=== PATIENT | male | born 1965 | race Two or more races ===

== ENCOUNTER 2020-08-02 09:29 | Inpatient (IN) | payer MEDICAID, OTHER ==
[~2020-08-02] VITALS: Ht 152.4 cm; Wt 64.4 kg
[2020-08-02 10:12] LABS: Basophils # (auto) 0 10 ^3/uL (0-0.2); Basophils % (auto) 0.2 % (0.0-2.0); Eosinophils # (auto) 0.1 10 ^3/uL (0-0.8); Eosinophils % (auto) 0.4 % (0.0-7.0); Hematocrit 45.5 % (41.0-53.0); Hemoglobin 15.7 g/dL (13.5-17.5); Lymphocytes # (auto) 0.9 10 ^3/uL (0.4-5.4); Lymphocytes % (auto) 5.8 % (10.0-50.0); Mean Corpuscular Hemoglobin 29.3 pg (28.0-32.0); Mean Corpuscular Hgb Conc. 34.6 g/dL (32.0-36.0); Mean Corpuscular Volume 84.6 fL (80.0-100.0); Monocytes # (auto) 0.7 10 ^3/uL (0-1.3); Monocytes % (auto) 4.6 % (0.0-12.0); Neutrophils # (auto) 14.3 10 ^3/uL (1.6-8.6); Platelet Count (auto) 216 10^3/uL (140-450); Red Blood Cells 5.38 10^6/uL (4.5-5.90); Red Cell Distribution Width 13.1 % (11.8-14.3); White Blood Cell 16.1 10^3/uL (4.4-10.8)
[2020-08-02 10:31] LABS: Alanine Aminotransferase 31 U/L (16-61); Anion Gap 7 (5-15); Blood Urea Nitrogen 26 mg/dL (7-18); Carbon Dioxide 25 mmol/L (21-32); Chloride 105 mmol/L (98-107); Glucose 346 mg/dL (74-106); Magnesium 2.2 mg/dL (1.6-2.6); Potassium 3.6 mmol/L (3.5-5.1); Sodium 137 mmol/L (136-145)
[2020-08-02 10:37] LABS: Alkaline Phosphatase 91 U/L (45-117); Aspartate Aminotransferase 15 U/L (15-37); BUN/Creatinine Ratio 19.8; Bilirubin, Total 0.4 mg/dL (0.2-1.0); GFR African American 73 mL/min; GFR Non-African American 60 mL/min; Total Protein 7.7 g/dL (6.4-8.2)
[2020-08-02] MEDS ORDERED: PROMETHAZINE HCL 25 MG/ML 1ML IV ONE (10:45)
[2020-08-02] MEDS ORDERED: HYDROmorphone HCL 2 MG/ML VL IV ONE (10:45)
[2020-08-02 13:11] LABS: Urine Bacteria FEW /hpf (None Seen); Urine Blood Negative /uL (Negative); Urine Specific Gravity 1.038 (1.001-1.035); Urine WBC 1 /hpf (0 - 3)
[2020-08-02] MEDS ORDERED: ONDANSETRON HCL 4 MG/2 ML VIAL IV PRN (14:15)
[2020-08-02] MEDS ORDERED: DEXTROSE (50%) 50ML SYRG IV PRN (14:15)
[2020-08-02] MEDS ORDERED: NITROGLYCERIN 0.4 MG SL TAB SL PRN (14:15)
[2020-08-02] MEDS ORDERED: hydrALAZINE HCL 20 MG/ML VL IV PRN (14:15)
[2020-08-02] MEDS ORDERED: MORPHINE SULF INJ 2 MG/ML SYRINGE 1ML IV PRN ×2 (14:15)
[2020-08-02] MEDS: SOD CHL 0.9%/ KCL 20MEQ 1,000 ML IV SCH ×2 (14:38→22:47)
[2020-08-02] MEDS: metroNIDAZOLE 500MG/100ML 100 ML IV SCH ×2 (14:51→22:47)
[2020-08-02] MEDS ORDERED: GASTROGRAFIN 120 ML SOL ONE (16:01)
[2020-08-02] MEDS: levoFLOXacin 500MG 100 ML IV SCH (17:43)
[2020-08-02] MEDS: ACCU-CHEK COMFORT CURVE STRIP VI SCH ×2 (18:18→23:41)
[2020-08-02] MEDS: InsuLIN REG 1unit/0.01ml Soln (100units/ml) SC SCH ×2 (18:19→23:56)
[2020-08-02 19:30] VITALS: BP 155/81
[2020-08-02] MEDS ORDERED: LOSA100T30 PO (20:41)
[2020-08-02] MEDS ORDERED: PREG50CA PO (20:41)
[2020-08-02] MEDS ORDERED: METF-371 PO (20:41)
[2020-08-02 22:00] VITALS: BP 155/81
[2020-08-03 05:00] VITALS: BP 157/88
[2020-08-03] MEDS: metroNIDAZOLE 500MG/100ML 100 ML IV SCH (05:28)
[2020-08-03] MEDS: ACCU-CHEK COMFORT CURVE STRIP VI SCH ×2 (05:29→11:41)
[2020-08-03] MEDS: SOD CHL 0.9%/ KCL 20MEQ 1,000 ML IV SCH (05:32)
[2020-08-03] MEDS: InsuLIN REG 1unit/0.01ml Soln (100units/ml) SC SCH ×2 (06:28→12:03)
[2020-08-03 07:19] LABS: INR 1.07 (0.9-1.15)
[2020-08-03] MEDS ORDERED: SUCCINYLCHOLINE CHLORIDE 20 MG/ML 10ML VIAL IV ONE (07:27)
[2020-08-03 09:00] VITALS: BP 161/88
[2020-08-03] MEDS: levoFLOXacin 500MG 100 ML IV SCH (09:58)
[2020-08-03] MEDS ORDERED: PANTOPRAZOLE 40 MG/10 ML VIAL INJ IV SCH (10:00)
[2020-08-03 12:41] VITALS: BP 156/82
== END 2020-08-03 12:52 | disposition left against medical advice (07) | DRG 254 ==
LOC: ER 09:29 → EDBD 09:29 → TELE 09:30 → TELE-WESTW 18:30
PROVIDERS: ADMIT Nurse Practitioner Acute Care; ATTEND Internal Medicine
DX: K42.0 Umbilical hernia with obstruction, without gangrene (principal); N17.0 Acute kidney failure with tubular necrosis; E11.65 Type 2 diabetes mellitus with hyperglycemia; Z20.822 Contact with and (suspected) exposure to COVID-19; F17.210 Nicotine dependence, cigarettes, uncomplicated; E86.0 Dehydration; I10 Essential (primary) hypertension; Z79.4 Long term (current) use of insulin; Z53.29 Procedure and treatment not carried out because of patient's decision for other reasons
CPT/HCPCS: 36415; 71045; 74176; 74250; 80053; 81001; 82962; 83036; 83735; 84484; 85025; 85610; 85730; 87426; 93005; 96361; 96365; 96367; 96375; G0378; J0330; J1815; J1956; J3490